=== PATIENT | female | born 1995 | race African-American/Black ===

== ENCOUNTER 2020-04-17 14:17 | Emergency (ER) | payer SELFPAY ==
[2020-04-17 14:32] VITALS: BP 119/80; PULSE 120; RESP 18; TEMP 36.9; O2SAT 97; BMI 44.4
--- NOTE | 2020-04-17 14:52 | ED_ITS ---
HPI - Female Genitourinary General: Chief complaint: Vaginal Bleeding Stated complaint: pelvic pain, vaginal bleeding Time Seen by Provider: 04/17/20 14:40 Source: patient Mode of arrival: ambulatory Limitations: no limitations History of Present Illness: HPI Narrative: Patient is a 24-year-old female who presents to ED today stating this morning when she awoke she had a severe urge to urinate so she got up to use the restroom but states she did not make it to the bathroom on time and had an episode of urinary incontinence. She states afterwards she began having a lot of pressure to her suprapubic/pelvic region and then shortly after began noticing some scant vaginal bleeding. She states her LMP was 5/3. She reports regular menstrual cycles. She reported slight dysuria with the episode of incontinence this morning. Since then she has complained of lots of pressure like sensations and burning to her pelvis. She has not had any constipation or diarrhea. She states she does not believe she is . She has not had any vaginal discharge or vaginal odor. MD elicited complaint: vaginal bleeding, pelvic pain and urinary incontinence Vaginal discharge: none Vaginal bleeding: scant Associated symptoms: Reports abdominal pain and vaginal bleeding; Deny headache(s), nausea, syncope or vaginal discharge Treatment prior to arrival: none Sexual activity: Yes Possible : unsure if Date of Last Menstrual Period: 03/27/20 Review of Systems General: Reports: 10 or more systems reviewed and unremarkable except in HPI and below Const: Denies: fever(s), chills, body aches, fatigue or malaise Eyes: Denies: change in vision or blurry vision ENMT: Denies: enlarged tonsils or odynophagia Card: Denies: chest pain, palpitations, irregular heart rhythm, edema, swelling of feet/ankles, lightheadedness, syncope, pre-syncope, dyspnea on exertion, orthopnea or leg pain with exertion Resp: Denies: dyspnea, productive cough, pain on inspiration or chest congestion GI: Reports: abdominal pain; Denies: nausea, vomiting, hematemesis, coffee ground emesis, heartburn, early satiety, diarrhea, fecal incontinence, change in bowel habits, pain on defecation, rectal swelling, change in stool character, hematochezia, melena or white/light colored stool : Reports: urinary frequency (x1 this AM), urinary incontinence (x1 this AM), vaginal bleeding and pelvic pain; Denies: flank pain, difficulty voiding, dysuria, urinary urgency, urinary hesitancy, dribbling, hematuria, genital lesions, genital pruritis, vaginal odor or vaginal discharge Musc: Denies: neck pain, back pain or joint pain Skin/Breast: Denies: rash Neuro: Denies: headache(s), numbness in extremities, weakness in extremities or sensory changes PFSH ED PFSH: Social History Smoking and tobacco status: never smoked Female Reproductive History: Date of last menstrual period: 03/27/20 Physical Exam Const: COMMON NORMALS: no acute distress, patient oriented x3, no limitations and alert NUTRITIONAL APPEARANCE: obese morbidly obese HENMT: COMMON NORMALS: normocephalic and atraumatic HEAD & SCALP: normocephalic and atraumatic Resp: COMMON NORMALS: normal respiratory effort and clear to auscultation bilaterally AUSCULTATION: clear to auscultation bilaterally Cardio: COMMON NORMALS: regular rate and regular rhythm RATE: regular rate RHYTHM: regular rhythm GI: COMMON NORMALS: Normal to inspection, nondistended, normoactive bowel sounds present, Soft to palpation, No hepatosplenomegaly present and no masses PALPATION: Yes Soft to palpation, Yes Tenderness to palpation present (GI) (mild suprapubic; non-surgical exam) and Yes No hepatosplenomegaly present : COMMON NORMALS: Yes no CVA tenderness, Yes normal external appearance, Yes normal appearance of the vagina, Yes normal appearance of the cervix, Yes normal bimanual exam, Yes No adnexal tenderness and Yes no masses BLADDER/KIDNEY EXAM: Yes no CVA tenderness EXTERNAL FEMALE EXAM: Yes normal appearance of the urethra SPECULUM EXAM - VAGINA: Yes vaginal bleeding SPECULUM EXAM - CERVIX: Yes Cervical os closed, No Cervical bleeding and No Abnormal cervical discharge present BIMANUAL EXAM - VAGINA & UTERUS: Yes normal bimanual exam OB/EXTERNAL & SPECULUM: vaginal bleeding Back/Pelvis: COMMON NORMALS: no CVA tenderness Extremity: COMMON NORMALS: normal to inspection, no clubbing, cyanosis or edema, no calf tenderness and no pedal edema Neuro: COMMON NORMALS: patient oriented x3 SENSORIUM/ORIENTATION: Yes alert Skin: COMMON NORMALS: no rashes or lesions noted GENERAL SKIN EXAM: no rashes or lesions noted Course Vital Signs: Vital signs: Vital Signs Temperature 98.4 F 04/17/20 14:32 Pulse Rate 120 H 04/17/20 14:32 Respiratory Rate 18 04/17/20 14:32 Blood Pressure 119/80 04/17/20 14:32 Pulse Oximetry 97 04/17/20 14:32 MDM - Female MDM Narrative: Medical decision making narrative: On patient's labs that she does have a 19,000 white count. She has a normal lactate. She was initially tachycardic upon arrival however after seated in the room HR promptly down now into the 70s. She has an overwhelming urinary tract infection on her UA. This will be cultured. I did go ahead and do a pelvic exam on patient and this was completely normal. She has no cervical tenderness, cervicitis, no discharge, there is no bleeding or even scant blood in her vaginal canal. She does have overall 100 RBCs on her urine. I think patient is confusing vaginal bleeding for hematuria. She has absolutely no CVA tenderness. At this time patient will be treated for a UTI. She was given IM Rocephin here and will be sent home on antibiotics. Strict return to ED precautions given regarding worsening pain, vomiting, fevers, or any other concerns she may have. She needs to see PCP early next week for reevaluation. Lab Data: Labs: Lab Results 04/17/20 04/17/20 04/17/20 Range/Units 14:59 14:59 14:59 WBC 19.0 H (4.0-10.0) 10^3/ uL RBC 4.13 (4.1-5.3) 10^6/u L Hgb 11.2 L (11.5-15.3) g/dL Hct 35.7 L (37.0-47.0) % MCV 86.4 (81-99) fL MCH 27.1 L (28.0-34.0) pg MCHC 31.4 (30.0-36.0) g/dL RDW 20.2 H (12.1-15.1) % Plt Count 439 H (130-400) 10^3/c mm MPV 9.2 (7.4-10.4) fL Neut % (Auto) 79.0 % Lymph % (Auto) 12.9 % [place] % (Auto) 6.3 % Eos % (Auto) 1.0 % Baso % (Auto) 0.4 % Neut # (Auto) 15.0 H (1.8-7.7) 10^3/u L Lymph # (Auto) 2.5 (0.8-4.8) 10^3/u L [place] # (Auto) 1.2 H (0.2-0.9) 10^3/u L Eos # (Auto) 0.2 (0.0-0.8) 10^3/u L Baso # (Auto) 0.1 (0.0-0.1) 10^3/u L Nucleated RBC % (a uto) 0 % Nucleated RBCs # 0.0 /100WBC Sodium 138 (136-145) mmol/L Potassium 4.0 (3.5-5.1) mmol/L Chloride 100 (98-107) mmol/L Carbon Dioxide 28 (22-29) mmol/L Anion Gap 14.0 (5-19) BUN 9 (6-20) mg/dL Creatinine 0.6 (0.5-0.9) mg/dL GFR Calculation 151.3 H (90-130) mL/min Glucose 110 (65-115) mg/dL Calculated Osmolal ity 283 L (285-295) mOsm/k g Lactate (0.5-2.2) mmol/L Calcium 9.5 (8.5-10.5) mg/dL Total Bilirubin 0.5 (0.15-1.2) mg/dL AST 20 (0-32) U/L ALT 12 (0-33) U/L Alkaline Phosphata se 147 H (35-105) IU/L Total Protein 7.6 (6.6-8.7) g/dL Albumin 4.3 (3.5-5.2) g/dL Globulin 3.3 (1.3-4.6) g/dL Lipase 19 (13-60) U/L HCG, Qual Negative (Negative) Urine Color (Yellow) Urine Appearance (CLEAR) Urine pH (5-7) Ur Specific Gravit y (1.005-1.030) Urine Protein (Negative) Urine Glucose (UA) (Normal) Urine Ketones (Negative) Urine Blood (Negative) Urine Nitrate (Negative) Urine Bilirubin (NEGATIVE) Urine Urobilinogen (Negative) mg/dL Ur Leukocyte Marily ase (Negative) Urine RBC (0-2) /hpf Urine WBC (0-5) /hpf Ur Squamous Epith Cells (0-5) Urine Bacteria (NONE) Urine Mucus 04/17/20 04/17/20 Range/Units 14:59 15:55 WBC (4.0-10.0) 10^3/ uL RBC (4.1-5.3) 10^6/u L Hgb (11.5-15.3) g/dL Hct (37.0-47.0) % MCV (81-99) fL MCH (28.0-34.0) pg MCHC (30.0-36.0) g/dL RDW (12.1-15.1) % Plt Count (130-400) 10^3/c mm MPV (7.4-10.4) fL Neut % (Auto) % Lymph % (Auto) % [place] % (Auto) % Eos % (Auto) % Baso % (Auto) % Neut # (Auto) (1.8-7.7) 10^3/u L Lymph # (Auto) (0.8-4.8) 10^3/u L [place] # (Auto) (0.2-0.9) 10^3/u L Eos # (Auto) (0.0-0.8) 10^3/u L Baso # (Auto) (0.0-0.1) 10^3/u L Nucleated RBC % (a uto) % Nucleated RBCs # /100WBC Sodium (136-145) mmol/L Potassium (3.5-5.1) mmol/L Chloride (98-107) mmol/L Carbon Dioxide (22-29) mmol/L Anion Gap (5-19) BUN (6-20) mg/dL Creatinine (0.5-0.9) mg/dL GFR Calculation (90-130) mL/min Glucose (65-115) mg/dL Calculated Osmolal ity (285-295) mOsm/k g Lactate 1.6 (0.5-2.2) mmol/L Calcium (8.5-10.5) mg/dL Total Bilirubin (0.15-1.2) mg/dL AST (0-32) U/L ALT (0-33) U/L Alkaline Phosphata se (35-105) IU/L Total Protein (6.6-8.7) g/dL Albumin (3.5-5.2) g/dL Globulin (1.3-4.6) g/dL Lipase (13-60) U/L HCG, Qual (Negative) Urine Color Yellow (Yellow) Urine Appearance Sl cloudy A (CLEAR) Urine pH 6.5 (5-7) Ur Specific Gravit y 1.015 (1.005-1.030) Urine Protein 2+ H (Negative) Urine Glucose (UA) Norm (Normal) Urine Ketones 1+ H (Negative) Urine Blood 3+ H (Negative) Urine Nitrate Negative (Negative) Urine Bilirubin 1+ H (NEGATIVE) Urine Urobilinogen 4 H (Negative) mg/dL Ur Leukocyte Marily ase 2+ H (Negative) Urine RBC >100 H (0-2) /hpf Urine WBC >100 H (0-5) /hpf Ur Squamous Epith Cells 5-10 H (0-5) Urine Bacteria 2+ H (NONE) Urine Mucus 1+ Discharge Plan Discharge Patient Disposition: Home, Self-Care Clinical Impression: Acute cystitis with hematuria Condition: Stable Prescriptions: New cefdinir 300 mg capsule 300 mg PO BID 10 Days Qty: 20 RF: 0 phenazopyridine [Pyridium] 100 mg tablet 100 mg PO Q8H Qty: 6 RF: 0 Discharge Orders: Discharge Order (Routine); Ordered 04/17/20 Ordered By: Zakiya Marie Discharge Diet: Usual diet Discharge Activity: Increase activity as tolerated Patient Instructions: Phenazopyridine (By mouth), Urinary Tract Infection in Women (ED) Activity Restrictions/Additional Instructions: Return to the emergency department for worsening pain, burning, fevers greater than 100.4, repetitive episodes of vomiting, inability to keep down your medications. Otherwise you need to follow-up with primary care next week for reevaluation. Coding Level of Care Code ED [employer] Manager for [facility] Fwd Exam Comprehensive
[2020-04-17 15:09] LABS: Basophils # 0.1 10^3/uL (0.0-0.1); Basophils % 0.4 %; Eosinophils # 0.2 10^3/uL (0.0-0.8); Hematocrit 35.7 % (37.0-47.0); Hemoglobin 11.2 g/dL (11.5-15.3); Lymphocytes # 2.5 10^3/uL (0.8-4.8); Lymphocytes % 12.9 %; Mean Corpuscular HGB Conc 31.4 g/dL (30.0-36.0); Mean Corpuscular Hemoglobin 27.1 pg (28.0-34.0); Mean Corpuscular Volume 86.4 fL (81-99); Mean Platelet Volume 9.2 fL (7.4-10.4); Monocytes # 1.2 10^3/uL (0.2-0.9); Monocytes % 6.3 %; Nucleated Red Blood Cells % 0 %; Platelet Count 439 10^3/cmm (130-400); Red Blood Count 4.13 10^6/uL (4.1-5.3); Red Cell Distribution Width 20.2 % (12.1-15.1)
--- NOTE | 2020-04-17 15:11 | USR_ITS ---
PROCEDURE INFORMATION: Exam: US Pelvis, Transvaginal Exam date and time: 04/17/2020 4:32 PM Age: 24 years old Clinical indication: Pelvic pain; Additional info: Pelvic pain; Abnormal bleeding; Pressure TECHNIQUE: Imaging protocol: Real-time transvaginal pelvic ultrasound with image documentation. Transvaginal imaging was used for better evaluation of the endometrium and adnexa. COMPARISON: No relevant prior studies available. FINDINGS: Uterus/cervix: Uterus measures approximately 5.9 x 3.5 x 3.9 cm. No myometrial mass. Endometrial echo stripe measures 10 mm thick. No endometrial cavity fluid. [place] fluid collection in the cervix measuring 1.5 cm long by 6 x 4 mm. Surrounding echogenic wall or mucosal thickening measuring 3-4 mm. Right adnexa: Follicular appearing right ovary measuring 2.2 x 1.9 x 1.6 cm. Dominant 1.3 cm simple appearing cyst or follicle. Normal ovarian blood flow. Left adnexa: Normal follicular appearing left ovary measuring 2.2 x 1.2 x 1.9 cm. No mass. Normal ovarian blood flow. Free fluid: Trace amount of cul-de-sac free fluid. US/US transvaginal [id number] IMPRESSION: 1.) [place] cervical fluid collection as described above of uncertain etiology. 2.) Follicular appearing ovaries. 1.3 cm right ovarian simple appearing cyst or dominant follicle. 3.) Trace amount of cul-de-sac free fluid.
[2020-04-17 15:17] LABS: HCG, Serum Qual Negative (Negative)
[2020-04-17 15:26] LABS: Alanine Aminotransferase 12 U/L (0-33); Albumin Level 4.3 g/dL (3.5-5.2); Alkaline Phosphatase 147 IU/L (35-105); Aspartate Amino Transferase 20 U/L (0-32); Blood Urea Nitrogen 9 mg/dL (6-20); Calcium 9.5 mg/dL (8.5-10.5); Carbon Dioxide 28 mmol/L (22-29); Chloride 100 mmol/L (98-107); Globulin 3.3 g/dL (1.3-4.6); Glomerular Filtration Rate 151.3 mL/min (90-130); Glucose 110 mg/dL (65-115); Lipase 19 U/L (13-60); Osmolality Calculated 283 mOsm/kg (285-295); Sodium 138 mmol/L (136-145); Total Bilirubin 0.5 mg/dL (0.15-1.2); Total Protein 7.6 g/dL (6.6-8.7)
[2020-04-17 15:37] LABS: Lactate (Lactic Acid level) 1.6 mmol/L (0.5-2.2)
[2020-04-17 16:14] LABS: Protein Urine 2+ (Negative); Specific Gravity, Urine 1.015 (1.005-1.030); Urine Color Yellow (Yellow); pH Urine 6.5 (5-7)
[2020-04-17 16:15] LABS: Add Urine Microscopic? YES; Bilirubin Urine 1+ (NEGATIVE); Blood Urine 3+ (Negative); Glucose Urine UA Norm (Normal); Ketones Urine 1+ (Negative); Leukocyte Esterase Urine 2+ (Negative); Nitrate Urine Negative (Negative); Urobilinogen Urine 4 mg/dL (Negative)
[2020-04-17 16:22] LABS: RBC Urine >100 /hpf (0-2)
[2020-04-17 16:23] LABS: WBC Urine >100 /hpf (0-5)
[2020-04-17 16:24] LABS: Add Urine Culture? Yes; Bacteria Urine 2+; Mucus Urine 1+
[2020-04-17] MEDS: cefTRIAXone 1,000 mg SDV 1000 MG IM (17:30)
[2020-04-17] MEDS: lidocaine 1% INJ 20 mL IM (17:34)
[2020-04-17 17:44] VITALS: PULSE 81; RESP 18; O2SAT 100
== END 2020-04-17 17:47 | disposition home or self-care (01) ==
PROVIDERS: Emergency Provider Physician Assistant
DX: N30.01 Acute cystitis with hematuria (principal)
CPT/HCPCS: 12345; 36415; 76830; 80053; 81001; 83605; 83690; 84703; 85025; 87077; 87086; 87186; 96372; 99282; 99283; E0352; J0696; J2001